=== PATIENT | male | born 1980 | race Caucasian/White ===

== ENCOUNTER 2019-10-01 09:15 | Outpatient (CLI) | payer SELFPAY ==
[2019-10-03 07:07] LABS: COVID-19 RT-PCR Result NEGATIVE (Negative)
== END 2019-10-01 09:35 ==
PROVIDERS: PCP Family Medicine; Visit Provider Nurse Practitioner Family
DX: Z11.59 Encounter for screening for other viral diseases (principal)
CPT/HCPCS: U0003

== ENCOUNTER 2020-07-13 12:22 | Emergency (ER) | payer SELFPAY ==
[2020-07-13 12:24] VITALS: BP 129/92; PULSE 74; RESP 16; TEMP 36; O2SAT 100
[2020-07-13] MEDS: Lactated Ringers 1,000 ML 1000 ML IV ×2 (13:35→17:55)
[2020-07-13 13:38] LABS: Abs Immature Grans 0.01 10^3/uL (0.0-0.06); Absolute Basophil Count 0.02 10^3/uL (0.0-0.2); Absolute Eosinophil Count 0.22 10^3/uL (0.0-0.7); Absolute Lymphocyte Count 1.27 10^3/uL (1.2-3.4); Absolute Monocyte Count 0.61 10^3/uL (0.1-0.8); Absolute Neutrophil Count 3.35 10^3/uL (1.2-6.7); Basophils % 0.4; HCT 43.1 % (40.0-50.0); HGB 14.7 g/dL (13.5-17.5); Immature Grans % 0.2; Lymphocytes % 23.2; MCH 28.4 pg (27.0-33.0); MCHC 34.1 % (32.0-36.0); MCV 83.4 fL (80-95); MPV 9.4 fL (8.0-11.0); Monocytes % 11.1; Neutrophils % 61.1; Nucleated RBC 0 %; Platelet Count 187 10^3/uL (130-400); RBC 5.17 10^6/uL (4.36-5.78); RDW 12.2 % (11.8-14.1); WBC 5.48 10^3/uL (4.4-10.8)
[2020-07-13 13:45] VITALS: BP 114/74; PULSE 56; RESP 20; TEMP 36.4; O2SAT 99
[2020-07-13 13:56] LABS: ALT 17 U/L (16-63); AST 15 U/L (15-37); Albumin 3.9 g/dL (3.4-5.0); Alkaline Phosphatase 55 U/L (46-116); Anion Gap 5.7 mmol/L (3-11); BUN 8 mg/dL (7-18); Bilirubin, Total 0.6 mg/dL (0.2-1.0); CO2 29.3 mmol/L (21.0-32.0); CREATININE 0.9 mg/dL (0.70-1.30); Calcium 8.6 mg/dL (8.5-10.1); Chloride 103 mmol/L (98-107); Glucose 99 mg/dL (74-106); Lipase 146 U/L (73-393); Potassium 4.1 mmol/L (3.5-5.1); Sodium 138 mmol/L (136-145); Total Protein 7.5 g/dL (6.4-8.2)
[2020-07-13 15:20] VITALS: BP 108/64; PULSE 54; RESP 20; TEMP 36.4; O2SAT 100
--- NOTE | 2020-07-13 15:30 | DI.CT_ITS ---
EXAM: CT ABDOMEN PELVIS W CLINICAL HISTORY: abdominal pain LLQ to midline 4-5 days. TECHNIQUE: Imaging Protocol: Axial computed tomography images with coronal and sagittal reformatted images were created and reviewed CONTRAST MATERIAL: Intravenous: Omnipaque 350 Contrast volume:structured data in ml Oral: yes / no COMPARISON: No exams were available for comparison FINDINGS: ABDOMEN: Lung Bases: Normal where visualized. Liver: Normal density. No measurable mass. Gallbladder and biliary tract: No radiodense calculus or dilation. Pancreas: Normal density, no abnormal calcifications or inflammatory process. Spleen: Normal. Kidneys: Normal size, contour and axis. No radiodense stones or obstructive uropathy. No masses seen. Adrenal glands: No masses seen. Abdominal Aorta: Abdominal portion non-dilated. Soft tissues: Small fatty containing umbilical hernia. Metallic densities in lower anterior abdomina l wall presumably related to prior hernia surgery. No recurrent hernia. PELVIS: Bladder: Symmetric distention, no gross wall thickening. Bowel: Normal appendix. No obstruction. Diffuse colonic wall thickening. Mild diverticulosis. No pneumatosis. Peritoneal cavity: No ascites, collection or mesenteric inflammatory response. Bones: Old sacral deformity, otherwise within normal limits. Reproductive organs: Mildly enlarged prostate Lymph nodes: Unremarkable. Impression: Mild diffuse colonic wall thickening consistent with colitis. RADIATION DOSE DELIVERED: 667.2mGy.cm Total DLP DATA REPOSITORY: All CT scans at this facility are submitted to the National Radiology Data Registry (NRDR) Dose Index Registry (DIR) with the [employer] ([employer]). RADIATION OPTIMIZATION: All CT scans at this facility use at least one of these dose optimization te chniques: automated exposure control; mA and/or kV adjustment per patient size (includes targeted exa ms where dose is matched to clinical indication); or iterative reconstruction.
--- NOTE | 2020-07-13 15:48 | W.ED.GENAD ---
Discharge Plan Disposition Patient Disposition: HOME Condition: Good Discharge Details Clinical Impression: Abdominal pain Primary Care Provider: Unknown,Unknown ED Provider: Makenzie Burns Home Meds and New Rx's Prescriptions: New dicyclomine 10 mg capsule 10 mg PO BID Qty: 10 RF: 0 Discharge Instructions Instructions: Abdominal Pain (ED) Additional Instructions: Follow-up with your primary care physician in 2 to 3 days for reevaluation Return with worsening pain, fever, chills Ibuprofen or milligrams daily dosing. Tylenol 650 mg every 4-6 hours Return with vomiting, fever, worsening pain, or with any new or progressing symptoms, persistent pain you need follow-up with GI doctor for outpatient colonoscopy You may take Bentyl for cramping pain Stand Alone Forms: Work Release Discharge Data Discharge Date/Time-TO BE ENTERED AT DEPARTURE: 07/13/20 19:35 Medical Decision Making <Kervin Paniagua MD - Last Filed: 07/21/20 20:08> 1500? 39-year-old male here with waxing and waning abdominal pain over the past 5 days localized to left lower quadrant radiating medially to midline. Patient tender lower abdomen. Screening labs reviewed: Urine ketones are present with normal anion gap. I suspect mild ketosis secondary to decreased oral intake. Consider acute diverticulitis versus perforated viscus versus other. Plan to obtain CT of the abdomen pelvis. Consider constipation. <ARI Garza - Last Filed: 07/13/20 20:26> Patient was signed out to me by Dr. Paniagua at 5:30 PM pending EKG and labs, labs do not show acute pathology CT scan shows possible colitis with diverticulosis any additional acute abnormality Patient is currently pain-free Patient is resting comfortably in room As patient does not have a primary care physician, I placed him on a environmental health safety manager list for follow-up Return precautions discussed and patient expressed understanding Discharge home with ibuprofen and Tylenol, Bentyl as needed for pain HPI <Kervin Paniagua MD - Last Filed: 07/21/20 20:08> General Mode of arrival: ambulatory. Date/Time Provider Initiated Documentation: 07/13/20 12:55. Limitations to Documentation: no limitations. Information obtained by: patient. HPI Narrative: 39-year-old male presents with chief complaint of patient notes pain has been present for the past 5 days. Pain is localized to his left lower abdomen and radiates centrally. Pain is severe and sharp at times. Pain is currently a dull ache. No known modifiers. He has no associated bright red blood per rectum or melena. He does note decreased bowel movements recently. Typically has bowel movements daily and has not had a significant bowel movement since Friday. No new medications. Patient denies urinary symptoms. Related Data Home Medications Medication Instructions Recorded Confirmed dicyclomine 10 mg PO BID #10 cap 07/13/20 Previous Rx's Medication Instructions Recorded dicyclomine 10 mg PO BID #10 cap 07/13/20 Allergies Allergy/AdvReac Type Severity Reaction Status Date / Time No Known Allergies Allergy Unverified 07/13/20 12:31 General Stated Complaint: Abd Prob JASMINA: 3 Review of Systems <Kervin Paniagua MD - Last Filed: 07/21/20 20:08> All systems reviewed & are unremarkable except as noted in HPI and below Constitutional Constitutional: Reports fever(s) ([place] feverish 4 days ago) Respiratory Respiratory: Denies cough Gastrointestinal Gastrointestinal: Reports as per HPI PFSH <Kervin Paniagua MD - Last Filed: 07/21/20 20:08> Surgical History Repair of inguinal hernia (~2008) Family History Mother Essential hypertension Father Personal history of malignant neoplasm oral Social History Smoking/Tobacco Use Status: Current every day Tobacco Type: cigars Per week: 10 Smoking risk assessment performed?: Yes Alcohol Intake: former Drug use: Never Details: no alcohol for 17 months Do you feel safe at home: Yes Do you feel safe in your relationship?: Yes Exam <Kervin Paniagua MD - Last Filed: 07/21/20 20:08> Const General: cooperative and no acute distress HENMT Head: normocephalic and atraumatic Mouth: moist mucous membranes Eyes Conjunctivae: normal conjunctivae Sclera: normal sclerae Neck Neck: trachea midline and supple Resp Auscultation: clear to auscultation bilaterally, no rales, no rhonchi and no wheezes Cardio Rate: regular rate and not tachycardic Rhythm: regular rhythm GI Palpation: soft, not firm, no guarding, no masses, not rigid and tender in the LLQ Skin General skin exam: no rashes or lesions noted Neuro General: patient alert, patient awake and tone normal Extrem General: no edema Psych Appearance: grossly normal Mental Status: mental status grossly normal Course <Kervin Paniagua MD - Last Filed: 07/21/20 20:08> Vital Signs Vital signs: Vital Signs Temperature 36 C L 07/13/20 12:24 Pulse 74 07/13/20 12:24 Respiratory Rate 16 07/13/20 12:24 Blood Pressure 129/92 H 07/13/20 12:24 Pulse Oximetry 100 07/13/20 12:24 Temperature 36.4 C L 07/13/20 15:20 Temperature Source Skin 07/13/20 15:20 Pulse 54 L 07/13/20 15:20 Respiratory Rate 20 07/13/20 15:20 Respiratory Effort 07/13/20 12:31 Blood Pressure 108/64 07/13/20 15:20 Blood Pressure Position Sitting 07/13/20 12:24 Pulse Oximetry 100 07/13/20 15:20 Oxygen Delivery Method Room Air 07/13/20 15:20 Oxygen Flow Rate 0 07/13/20 15:20 Pain Level 6 07/13/20 13:38 Comment pain has been a 10/ past few days 07/13/20 12:24 Lab/Test Results Lab/Test Results: Laboratory Tests Range/Units 07/13/20 07/13/20 13:30 13:30 WBC (4.4-10.8) 10^3/uL 5.48 RBC (4.36-5.78) 10^6/uL 5.17 Hgb (13.5-17.5) g/dL 14.7 Hct (40.0-50.0) % 43.1 MCV (80-95) fL 83.4 MCH (27.0-33.0) pg 28.4 MCHC (32.0-36.0) % 34.1 RDW (11.8-14.1) % 12.2 Plt Count (130-400) 10^3/uL 187 MPV (8.0-11.0) fL 9.4 Immature Gran % 0.2 Neutrophils % 61.1 Lymphocytes % 23.2 Monocytes % 11.1 Eosinophils % 4.0 Basophils % 0.4 Nucleated RBC % % 0 Absolute Neutrophils (1.2-6.7) 10^3/uL 3.35 Absolute Lymphocytes (1.2-3.4) 10^3/uL 1.27 Absolute Monocytes (0.1-0.8) 10^3/uL 0.61 Absolute Eosinophils (0.0-0.7) 10^3/uL 0.22 Absolute Basophils (0.0-0.2) 10^3/uL 0.02 Sodium (136-145) mmol/L 138 Potassium (3.5-5.1) mmol/L 4.1 Chloride (98-107) mmol/L 103 Carbon Dioxide (21.0-32.0) mmol/L 29.3 Anion Gap (3-11) mmol/L 5.7 BUN (7-18) mg/dL 8 Creatinine (0.70-1.30) mg/dL 0.9 Estimated GFR/1.73 m2 (mL/min/1.73m2) >= 60.00 Glucose (74-106) mg/dL 99 Calcium (8.5-10.1) mg/dL 8.6 Total Bilirubin (0.2-1.0) mg/dL 0.6 AST (15-37) U/L 15 ALT (16-63) U/L 17 Alkaline Phosphatase (46-116) U/L 55 Total Protein (6.4-8.2) g/dL 7.5 Albumin (3.4-5.0) g/dL 3.9 Lipase (73-393) U/L 146 Sign Out <Kervin Paniagua MD - Last Filed: 07/21/20 20:08> Sign Out Data: Sign Out Comment: Follow-up CT imaging results and reassess patient for disposition. Last updated by Kervin Paniagua MD at 07/13/20 17:32
[2020-07-13] MEDS: Omnipaque 350 MG/ML 100 ML BTL IJ (16:00)
[2020-07-13] MEDS: Normal Saline - Diluent 50 ML VIAL IV (16:01)
[2020-07-13 17:00] VITALS: BP 122/70; PULSE 52; RESP 18; TEMP 36.5; O2SAT 100
--- NOTE | 2020-07-13 17:11 | DI.VRAD_ITS ---
PROCEDURE INFORMATION: Exam: CT Abdomen And Pelvis With Contrast Exam date and time: 07/13/2020 4:01 PM Age: 39 years old Clinical indication: Abdominal pain; Other: Llq TECHNIQUE: Imaging protocol: Computed tomography of the abdomen and pelvis with contrast. Radiation optimization: All CT scans at this facility use at least one of these dose optimization techniques: automated exposure control; mA and/or kV adjustment per patient size (includes targeted exams where dose is matched to clinical indication); or iterative reconstruction. Contrast material: OMNI 350; Contrast volume: 100 ml; Contrast route: INTRAVENOUS (IV); COMPARISON: No relevant prior studies available. FINDINGS: Liver: Normal. No mass. Gallbladder and bile ducts: Normal. No calcified stones. No ductal dilation. Pancreas: Normal. No ductal dilation. Spleen: Normal. No splenomegaly. Adrenal glands: Normal. No mass. Kidneys and ureters: Normal. No hydronephrosis. Stomach and bowel: Diverticulosis is present. There is no evidence of bowel obstruction. Thickening of the wall of the colon. Appendix: No evidence of appendicitis. Intraperitoneal space: Unremarkable. No free air. No significant fluid collection. Vasculature: Unremarkable. No abdominal aortic aneurysm. Lymph nodes: Unremarkable. No enlarged lymph nodes. Urinary bladder: Unremarkable as visualized. Reproductive: The seminal vesicles appear prominent, which is most likely physiologic .The prostate appears enlarged measuring approximately 5.3 cm in diameter. Bones/joints: Unremarkable. No acute fracture. Soft tissues: Unremarkable. IMPRESSION: 1. Diverticulosis. 2. Thickening of the wall of the colon. This may be artifact due to lack distention. However, inflammatory bowel disease or other causes of colitis cannot be excluded. 3. The prostate appears enlarged. Dictated and Authenticated by: Silvio Parisi MD. Ordering:WINNIE Galeana MD
--- NOTE | 2020-07-13 20:35 | NUR.NOTE ---
Nursing Note: SENT REFERAL TO CM TO EST PCP STEPAN 07/13/20
== END 2020-07-13 19:35 | disposition home or self-care (01) ==
PROVIDERS: Student in an Organized Health Care Education/Training Program; Emergency Provider Physician Assistant
DX: R10.32 Left lower quadrant pain (principal)
CPT/HCPCS: 80053; 83690; 96360; 96361; 99285; 74177; 85025; 99284; J3490